=== PATIENT | female | born 1990 | race Two or more races ===

== ENCOUNTER 2017-09-16 16:16 | Emergency (ER) | payer SELFPAY ==
[~2017-09-16] VITALS: Ht 165.1 cm; Wt 70.0 kg
[2017-09-16] MEDS ORDERED: ACETAMINOPHEN 325MG TABLET PO STA (16:58)
[2017-09-16 17:17] LABS: BASOPHILS % 1.2 % (0.0-2.0); EOSINOPHILS % 3.1 % (0.0-5.0); HEMATOCRIT. 32.8 % (36.0-48.0); MEAN CORPUSCULAR VOLUME 69.1 fL (81.0-99.0); MONOCYTES % 5.8 % (2.0-8.0); NEUTROPHILS % 67.9 % (40.0-76.0); PLATELET 470 x1000/uL (130-400); RED BLOOD CELL COUNT 4.75 mill/uL (4.2-5.4); RED CELL DISTRIBUTION WIDTH 18.1 % (11.6-14.6)
[2017-09-16 17:22] LABS: CHLORIDE 108 mEq/L (98-107)
[2017-09-16 17:27] LABS: ETHANOL BLOOD < 10 mg/dL
[2017-09-16 17:36] LABS: PLATELET ESTIMATE INCREASED
[2017-09-16 18:38] LABS: CLARITY URINE CLEAR (CLEAR); COLOR URINE YELLOW (YELLOW); KETONES URINE NEGATIVE (NEGATIVE); LEUKOCYTE ESTERASE URINE NEGATIVE (NEGATIVE); NITRITE URINE NEGATIVE (NEGATIVE); OCCULT BLOOD URINE 1+ (NEGATIVE); PH URINE 6.5 (4.5-8.0); PROTEIN URINE NEGATIVE (NEGATIVE); SPECIFIC GRAVITY URINE 1.009 (1.005-1.030); UROBILINOGEN URINE 0.2 E.U./dL (0.2-1.0)
[2017-09-16 18:47] LABS: *AMPHETAMINES SCREEN URINE NEGATIVE (NEGATIVE); *BARBITURATES SCREEN URINE NEGATIVE (NEGATIVE); *BENZODIAZEPINES SCREEN URINE NEGATIVE (NEGATIVE); *COCAINE SCREEN URINE NEGATIVE (NEGATIVE); METHADONE URINE SCREEN NEGATIVE (NEGATIVE); OPIATES URINE SCREEN NEGATIVE (NEGATIVE)
[2017-09-16 18:48] LABS: PHENCYCLIDINE URINE SCREEN NEGATIVE (NEGATIVE)
[2017-09-16 18:49] LABS: CANNABINOID URINE SCREEN NEGATIVE (NEGATIVE)
[2017-09-16 20:45] VITALS: BP 112/66
== END 2017-09-16 20:45 | disposition home or self-care (01) ==
LOC: ER 16:16
DX: R51 Headache (principal); D64.9 Anemia, unspecified; R42 Dizziness and giddiness
CPT/HCPCS: 36415; 80053; 80305; 81003; 81025; 85025; 93005; 99285; G0482